=== PATIENT | male | born 1965 | race Caucasian/White ===

== ENCOUNTER 2022-12-20 22:16 | Inpatient (IN) | payer OTHER, SELFPAY ==
--- NOTE | ~2022-12-20 | XR_ITS ---
EXAMINATION: XR CHEST CLINICAL INFORMATION: Chest COMPARISON: None available. TECHNIQUE: Frontal view of the chest was obtained. FINDINGS: Normal symmetric lung volumes. No parenchymal consolidation. No pleural effusion. No pneumothorax. Cardiomediastinal silhouette and pulmonary vascularity are within normal limits. No acute osseous abnormalities. XR/XR chest 1V IMPRESSION: No acute pulmonary disease.
--- NOTE | ~2022-12-20 | CT_ITS ---
EXAMINATION: CT HEAD WITHOUT CONTRAST (STROKE PROTOCOL) CLINICAL INFORMATION: Stroke protocol. Right facial injury within the right arm numbness COMPARISON: None available. TECHNIQUE: Contiguous axial imaging was performed from the skull base to vertex without intravenous administration of contrast. This CT examination was performed using dose optimization techniques as appropriate, variously including the following: *Automated exposure control *Adjustment of mA and/or kV according to patient size (this includes techniques or standardized protocols for targeted exams where dose is matched to indication/reason for exam; i.e. extremities or head) *Use of iterative reconstruction technique DLP: 783 mGy-cm FINDINGS: There is no evidence of acute intracranial hemorrhage or territorial infarction. No abnormal mass effect or midline shift is seen. Bates to white matter differentiation is well preserved. No extra-axial fluid collections are identified. No hydrocephalus. No significant volume loss. There is no abnormal attenuation within the brain parenchyma. No acute osseous or soft tissue abnormality. The mastoid air cells and visualized portions of the paranasal sinuses are well aerated. CT/CT head for stroke IMPRESSION: No acute intracranial pathology. This critical result was discussed with Dr Harden at 12/20/2022 10:29 PM and it was ascertained that the content and urgency of the report was understood at the time of direct communication.
--- NOTE | ~2022-12-20 | MR_ITS ---
EXAMINATION: MR BRAIN WITHOUT CONTRAST CLINICAL INFORMATION: Stroke. Post PA. COMPARISON: Head CT December 20, 2022. TECHNIQUE: Multiplanar, multisequence imaging of the brain was performed without intravenous contrast. FINDINGS: There is no acute infarction, hemorrhage, mass, or extra-axial fluid collection. The ventricles are normal in size without hydrocephalus. Mild scattered nonspecific foci of T2/FLAIR hyperintensity are seen within the cerebral white matter. The major arterial flow voids are preserved at the skull base. The extracranial structures are unremarkable. MR/MR head/brain wo con IMPRESSION: No acute infarct, mass lesion, intracranial hemorrhage, or evidence of hydrocephalus.
--- NOTE | ~2022-12-20 | CT_ITS ---
EXAMINATION: CT ANGIOGRAM HEAD AND NECK CLINICAL INFORMATION: Right arm weakness. Dysarthria. Right facial droop.. Assess for major vessel occlusion. COMPARISON: CT head performed earlier same date TECHNIQUE: Test bolus sequences followed by intravenous administration 100 mL of Omnipaque 300 intravenous contrast. Helical imaging was performed in the axial plane from the mediastinum to the skull vertex. Delayed postcontrast imaging of the head was also performed. The data was processed at the chief cardiopulmonary technologist's workstation for generation of MIP sequences. Three-dimensional volume rendered reformatted images were also generated at an offline 3-D workstation. This CT examination was performed using dose optimization techniques as appropriate, variously including the following: *Automated exposure control *Adjustment of mA and/or kV according to patient size (this includes techniques or standardized protocols for targeted exams where dose is matched to indication/reason for exam; i.e. extremities or head) *Use of iterative reconstruction technique The degree of stenosis determined by NASCET criteria. DLP: 1685 mGy-cm FINDINGS: SOFT TISSUES AND LUNG APICES: No overt abnormality is appreciated. CTA NECK: The aortic arch has a classic configuration and the major arch vessel origins are non-stenotic. The vertebral arteries are co-dominant and both vertebral origins are widely patent. 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 There is a 2.6 mm chronic saccular aneurysm/pseudoaneurysm emanating from the anterior aspect of the V3 segment, also just distal to the C2 foramen transversarium (see moise images). There is questionable diffuse irregularity of the bilateral V2 and V3, raising the possibility of fibromuscular dysplasia. Both common carotid arteries are normal in course and caliber. Both internal carotid arteries are widely patent.. CTA HEAD: There is normal opacification of the major intracranial vessels. No acute proximal large vessel occlusion, focal flow-limiting stenosis, or saccular intracranial aneurysm is identified. No abnormal parenchymal enhancement or regional oligemia is visualized. HEAD (delayed): No intracranial mass, intercerebral edema, hemorrhage, or midline shift is evident. The ventricles and sulci are stable in size and configuration. No extra-axial collections are appreciated. No pathologic intracranial enhancement. Dural sinuses are patent. The paranasal sinuses are well-aerated and clear. CT/CT angio head neck stroke IMPRESSION: * No large vessel occlusion or hemodynamically significant stenosis within the intracranial or extracranial arterial vasculature. 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 * Chronic saccular aneurysm/pseudoaneurysm measuring 2.6 mm emanating from the anterior aspect of the right V3 segment, just distal to the C2 foramen transversarium. * Question diffuse irregularity of the bilateral V2 and V3 segments, raising the possibility of fibromuscular dysplasia. This critical result was discussed with Dr Harden at 12/20/2022 11:01 PM and it was ascertained that the content and urgency of the report was understood at the time of direct communication.
--- NOTE | 2022-12-20 22:22 | ECG_ITS ---
Test Reason : stroke Blood Pressure : / mmHG Vent. Rate : 100 BPM Atrial Rate : 100 BPM P-R Int : 166 ms QRS Dur : 078 ms QT Int : 352 ms P-R-T Axes : 038 025 025 degrees QTc Int : 454 ms Normal sinus rhythm Normal ECG No previous ECGs available Referred By: Thanh Harden Electronically Signed By:Charlie Lion
[2022-12-20 22:26] LABS: Prothrombin Time Whole Bld POC 12.9 sec (11.1-13.5); ~PT, ~INR - Anti Coag Clinic 1.1 (0.9-1.1)
[2022-12-20 22:29] VITALS: BP 169/105; PULSE 114; O2SAT 99
[2022-12-20] MEDS: iohexoL 350 MG/ML 100 ML INFUS..BTL IV (22:33)
[2022-12-20 22:42] VITALS: BMI 26.4
--- NOTE | 2022-12-20 22:49 | ED.NEUROSD ---
HPI - Neuro Symptoms/Deficit General Chief Complaint: Stroke Stated Complaint: stroke alert Time Seen by Provider: 12/20/22 22:19 Source: patient and EMS Mode of arrival: EMS Limitations: no limitations History of Present Illness HPI Narrative: 57-year-old male who presents emergency department for evaluation of stroke-like symptoms which began while he was at work at 21:00 hours. 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 He states that the went in to the store room to get supplies at around 21:00 hours when he ?felt weird . States that he developed a tingling this in the right side of his body. He then the weakness in his right arm and right leg. He states that while he was at work he developed numbness in the right side of his face and then a right facial droop. He then developed right arm and right leg weakness. He went to a colleague who took his blood pressure and when he pulled down his mask it was noted that he had a right facial droop. Patient states that his blood pressure was high, his colleague called an ambulance, the patient then transported to the emergency department. The patient was evaluated by me on the head school custodian stretcher. The patient had dysarthric speech, right facial droop, right upper and right lower extremity weakness compared to the left. He was sent directly to CT scan or CT scan of the brain without contrast, CT angiogram head and neck. CT scan of the brain without contrast was unremarkable and I did discuss this with the covering radiologist I did discuss tPA with the patient and he did give me informed verbal consent. I also discussed tPA with our covering neurologist, Dr. Garcia and he agreed that the patient was a tPA candidate. The patient did tell me that his platelet count is normal but when he takes NSAID his platelet count drops. I did discuss this with Dr. Garcia and we both felt that this was not a contraindication to tPA at this time. I did discuss the CT scan of the head and neck with the radiology and there was no acute retrievable blood clot, there were incidental finding which I do not think were contraindicated indication to giving tPA. Related Data Allergies Allergy/AdvReac Type Severity Reaction Status Date / Time codeine Allergy Unknown Verified 12/20/22 22:33 NSAIDS (Non-Steroidal Allergy Unknown Verified 12/20/22 22:33 Anti-Inflamma Penicillins Allergy Unknown Verified 12/20/22 22:33 Tetanus Vaccines and Toxoid Allergy Unknown Verified 12/20/22 22:33 Review of Systems Review of Systems: Yes all other systems are reviewed and are negative Neurologic: Reports Abnormal speech present (Dysarthric but comprehensible) [facility] Past Medical History [facility] Narrative: Past medical history: ADHD, low platelet count after taking NSAIDs. 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 Social History Social History Alcohol intake: never Smoked in Last 30 Days: No Use of substances other than those prescribed or required for medical reasons: No Physical Exam Vital Signs: Vital Signs: Last Vital Signs Temp 97.7 F 12/20/22 23:02 Pulse 98 12/20/22 23:18 Resp 14 12/20/22 23:18 BP 157/99 H 12/20/22 23:18 Pulse Ox 100 12/20/22 23:18 O2 Del Method 12/20/22 23:18 BMI result Body Mass Index 26.4 Const: Other: Awake, alert, male patient, pleasant, cooperative, dysarthric speech but comprehensible, obvious right facial droop, right upper extremity weakness and right lower extremity weakness compared to low Orientation/consciousness: oriented to person and oriented to place HEENT: Head: Yes normal to inspection, Yes normocephalic and Yes atraumatic Ears: external ears normal General nose exam: Normal external nose present Face and sinus: Yes normal facial exam Mouth: Normal oral and palatal mucosa present Throat: Yes posterior oropharynx normal Eyes: General: appearance normal, both eyes and all related structures Pupils: Equal, round and reactive pupils present Neck: Neck: Yes normal visual inspection, Yes no lymphadenopathy, Yes trachea midline and Yes supple Chest: Chest palpation & inspection: normal inspection of the chest and normal palpation of entire chest wall Resp: Effort & Inspection: normal respiratory effort and able to speak in complete sentences Auscultation: clear to auscultation bilaterally Cardio: Rate: regular rate Rhythm: regular rhythm Heart sounds: S1 normal heart sound present, S2 normal heart sound present and no murmurs GI: Inspection: Yes normal to inspection Palpation (GI): Soft to palpation, nontender and no guarding Auscultation: normal bowel sounds : General: Yes no CVA tenderness Back/Spine/Pelvis: Back: no CVA tenderness Skin: General skin exam: no rashes or lesions noted Neuro: General: oriented to person and oriented to place Cranial nerves: Yes Equal, round and reactive pupils present and Yes Other cranial nerve findings present (Right facial droop) Cognition (Neuro): normal cognition Speech: Abnormal speech present (Dysarthric but comprehensible) Motor exam (neuro): Other motor observations present (Right upper, right lower extremity weakness) Extrem: General: Yes normal to inspection Psych: Appearance: grossly normal Speech and movement: Normal speech and movement present Affect: normal affect Attitude: cooperative Thought process: Normal thought process present Thought content: Normal thought content present Medications Administered Discontinued Medications Generic Name Dose Route Start Last Admin Trade Name Freq PRN Reason Stop Dose Admin Alteplase, Recombinant 75.2 mg 12/20/22 22:58 12/20/22 22:57 Alteplase 100 Mg Vial IV 12/20/22 22:59 75.2 mg ONCE ONE Administration Iohexol 100 ml 12/20/22 22:33 12/20/22 22:33 Iohexol 350 Mg/Ml 100 Ml Infus..Btl IV 12/20/22 22:34 70 ml ONCE ONE Administration Medical Decision Making Medical Decision Making [facility] Narrative: 57 y/o male with no significant past medical history presents emergency department for evaluation of sudden onset of right facial droop, right upper and lower extremity weakness, dysarthric speech which began at 21:00 hours while he was at work. Patient examination on presentation is consistent with acute stroke. CT scan of the brain was discussed with the radiologist there are no acute findings. I did discuss the patient's presentation with the covering neurologist, Dr. Garcia and we both agreed that the patient was a good tPA candidate. The patient did give me informed verbal consent and he was given the tPA bolus and started on tPA drip. CT angiogram head and neck did not reveal any retrieval clot and no significant acute findings. I did discuss the patient's presentation with the covering assistant facility manager, Dr. Flores and the patient was except into the intensive care unit for further management. Differential Diagnosis Differential diagnosis includes was not limited to stroke, TIA, cerebral bleed, complex migraine Consult Healthcare Provider Management of the patient was discussed with: Director Financial Analysis (Neurologist, Dr. Garcia, intensive Dr Flores, radiology Dr. Kessler) Lab Data [facility] Lab Attestation statement: I reviewed the patient's lab results. 12/20/22 22:51 12/20/22 22:51 Labs: Lab Results 12/20/22 12/20/22 12/20/22 Range/Units 22:22 22:51 22:51 WBC 6.7 (4.8-10.8) X10*3/uL RBC 4.73 (4.60-5.80) X10*6/uL Hgb 13.9 L (14.0-18.0) g/dl Hct 42.3 (42.0-52.0) % MCV 89.4 (80.0-98.0) fL MCH 29.4 (27.0-33.0) pg MCHC 32.9 (31.0-36.0) g/dl RDW 12.7 (11.0-16.0) % Plt Count 131 L (160-400) X10*3/uL MPV 11.1 (9.4-12.4) fL Immature Gran % (Auto) 0.4 (0.0-0.4) % Neut % (Auto) 59.1 (45-73) % Lymph % (Auto) 29.3 (20-40) % Summit % (Auto) 9.7 (2-11) % Eos % (Auto) 1.2 (0-4) % Baso % (Auto) 0.3 (0-2) % Lymph # (Auto) 2.0 (1.2-4.9) X10*3/uL Summit # (Auto) 0.7 (0.1-1.2) X10*3/uL Eos # (Auto) 0.1 (0.0-0.4) X10*3/uL Baso # (Auto) 0.0 (0.0-0.2) X10*3/uL Abs Immat Gran (auto) 0.03 (0.00-0.03) X10*3/uL Absolute Neuts (auto) 4.0 (2.0-8.3) x10*3/uL Absolute Nucleated RBC 0.000 (0.0-0.012) X10*3/uL Nucleated RBC % (auto) 0.0 (0.0-0.2) /100WBC PT (10.0-13.1) SEC Whole Blood PT 12.9 (11.1-13.5) sec INR (0.9-1.1) Whole Blood INR 1.1 (0.9-1.1) APTT (26.0-36.4) SEC Sodium 138 (135-145) mmol/L Potassium 4.2 (3.3-5.1) mmol/L Chloride 105 (96-108) mmol/L Carbon Dioxide 25 (22-29) mmol/L Anion Gap 12 (12-20) BUN 15 (9-16) mg/dL Creatinine 0.85 (0.5-1.4) mg/dL Estim Creat Clear Calc 100.1 Estimated GFR > 60 Random Glucose 93 (60-115) mg/dL Calcium 8.8 (8.4-10.2) mg/dL Total Bilirubin 0.9 (0.0-1.0) mg/dL Direct Bilirubin 0.2 (0.0-0.5) mg/dL AST 20 (5-37) U/L ALT 23 (0-40) U/L Alkaline Phosphatase 73 (39-117) U/L Total Creatine Kinase 49 (38-174) U/L Total Protein 5.9 L (6.5-8.0) g/dL Albumin 4.2 (3.5-5.0) g/dL // Range/Units 22:51 WBC (4.8-10.8) X10*3/uL RBC (4.60-5.80) X10*6/uL Hgb (14.0-18.0) g/dl Hct (42.0-52.0) % MCV (80.0-98.0) fL MCH (27.0-33.0) pg MCHC (31.0-36.0) g/dl RDW (11.0-16.0) % Plt Count (160-400) X10*3/uL MPV (9.4-12.4) fL Immature Gran % (Auto) (0.0-0.4) % Neut % (Auto) (45-73) % Lymph % (Auto) (20-40) % Summit % (Auto) (2-11) % Eos % (Auto) (0-4) % Baso % (Auto) (0-2) % Lymph # (Auto) (1.2-4.9) X10*3/uL Summit # (Auto) (0.1-1.2) X10*3/uL Eos # (Auto) (0.0-0.4) X10*3/uL Baso # (Auto) (0.0-0.2) X10*3/uL Abs Immat Gran (auto) (0.00-0.03) X10*3/uL Absolute Neuts (auto) (2.0-8.3) x10*3/uL Absolute Nucleated RBC (0.0-0.012) X10*3/uL Nucleated RBC % (auto) (0.0-0.2) /100WBC PT 12.7 (10.0-13.1) SEC Whole Blood PT (11.1-13.5) sec INR 1.1 (0.9-1.1) Whole Blood INR (0.9-1.1) APTT 33.7 (26.0-36.4) SEC Sodium (135-145) mmol/L Potassium (3.3-5.1) mmol/L Chloride (96-108) mmol/L Carbon Dioxide (22-29) mmol/L Anion Gap (12-20) BUN (9-16) mg/dL Creatinine (0.5-1.4) mg/dL Estim Creat Clear Calc Estimated GFR Random Glucose (60-115) mg/dL Calcium (8.4-10.2) mg/dL Total Bilirubin (0.0-1.0) mg/dL Direct Bilirubin (0.0-0.5) mg/dL AST (5-37) U/L ALT (0-40) U/L Alkaline Phosphatase (39-117) U/L Total Creatine Kinase (38-174) U/L Total Protein (6.5-8.0) g/dL Albumin (3.5-5.0) g/dL Radiology Impression Discussion of test interpretation with radiology: I discussed test interpretation with the radiologist Radiologist Impression: CT head for stroke IMPRESSION: No acute intracranial pathology. This critical result was discussed with Dr Harden at 12/20/2022 10:29 PM and it was ascertained that the content and urgency of the report was understood at the time of direct communication. Dictated By:Giovany Kessler MDSigned By:<Electronically signed by Giovany Kessler MD in [place]>12/20/[address] angio head neck stroke IMPRESSION: * No large vessel occlusion or hemodynamically significant stenosis within the intracranial or extracranial arterial vasculature. 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 * Chronic saccular aneurysm/pseudoaneurysm measuring 2.6 mm emanating from the anterior aspect of the right V3 segment, just distal to the C2 foramen transversarium. * Question diffuse irregularity of the bilateral V2 and V3 segments, raising the possibility of fibromuscular dysplasia. This critical result was discussed with Dr Harden at 12/20/2022 11:01 PM and it was ascertained that the content and urgency of the report was understood at the time of direct communication. Dictated By:Giovany Kessler MDSigned By:<Electronically signed by Giovany Kessler MD in [place]>12/20/22 2303 Independent Historian Clinical information obtained from an independent historian. History obtained from or confirmed by: EMS NIH Stroke Scale Internal: Initial- Upon Arrival Level of Consciousness: Alert Level of Consciousness Questions: Answers both questions correctly Level of Consciousness Commands: Performs both tasks correctly Best Gaze: Normal Visual: No visual loss Facial Palsy: Partial paralysis (Right) Motor Arm (Right): Drift Motor Arm (Left): No drift Motor Leg (Right): No drift Motor Leg (Left): No drift Limb Ataxia: Absent Sensory: Mild to moderate sensory loss Best Language: No aphasia Dysarthia: Mild to moderate dysarthria Extinction and Inattention: No abnormality Score: 5 Critical Care Time Critical Care Time Critical Care Time: Yes Total Critical Care Time: 80 Attestation: Critical Care: The patient was critically ill with a high probability of imminent or life threatening deterioration. I spent greater than 30 minutes of discontinuous time evaluating the patient,delivering critical care at the bedside, discussing and evaluating pertinent data with consultants. Critical care time does not include time spent performing separately billable procedures or teaching. Total time spent performing critical care was 80 minutes. Discharge Plan Discharge Clinical Impression: Cerebrovascular accident Qualifiers: CVA mechanism: unspecified Qualified Code(s): I63.9 - Cerebral infarction, unspecified Patient Disposition: Admitted As Inpatient
[2022-12-20 22:55] LABS: MANUAL DIFF FLAG NO
[2022-12-20 22:58] LABS: Stroke Lab Use COMPLETE
[2022-12-20 22:59] LABS: Basophils Percent Auto 0.3 % (0-2); Eosinophils Absolute Auto 0.1 X10*3/uL (0.0-0.4); Eosinophils Percent Auto 1.2 % (0-4); Hematocrit 42.3 % (42.0-52.0); Hemoglobin 13.9 g/dl (14.0-18.0); Imm Gran Abs Auto 0.03 X10*3/uL (0.00-0.03); Imm Gran Pct Auto 0.4 % (0.0-0.4); Lymphocytes Percent Auto 29.3 % (20-40); Mean Corpuscular HGB Conc 32.9 g/dl (31.0-36.0); Mean Corpuscular Hemoglobin 29.4 pg (27.0-33.0); Mean Corpuscular Volume 89.4 fL (80.0-98.0); Mean Platelet Volume 11.1 fL (9.4-12.4); Monocytes Absolute Auto 0.7 X10*3/uL (0.1-1.2); Monocytes Percent Auto 9.7 % (2-11); Neutrophils Percent Auto 59.1 % (45-73); Platelet Count 131 X10*3/uL (160-400); Red Blood Count 4.73 X10*6/uL (4.60-5.80); Red Cell Distribution Width 12.7 % (11.0-16.0); White Blood Count 6.7 X10*3/uL (4.8-10.8)
[2022-12-20 23:01] VITALS: BP 152/87
[2022-12-20 23:01] LABS: INTERNATIONAL NORM RATIO 1.1 (0.9-1.1); Prothrombin Time 12.7 SEC (10.0-13.1)
[2022-12-20 23:02] VITALS: BP 155/97; PULSE 94; RESP 19; TEMP 36.5; O2SAT 99
[2022-12-20 23:03] LABS: Partial Thromboplastin Time 33.7 SEC (26.0-36.4)
[2022-12-20 23:14] LABS: Alanine Aminotransferase 23 U/L (0-40); Albumin Level 4.2 g/dL (3.5-5.0); Alkaline Phosphatase 73 U/L (39-117); Anion Gap 12 (12-20); Aspartate Amino Transferase 20 U/L (5-37); Bilirubin Direct 0.2 mg/dL (0.0-0.5); Bilirubin Total 0.9 mg/dL (0.0-1.0); Blood Urea Nitrogen 15 mg/dL (9-16); Calcium 8.8 mg/dL (8.4-10.2); Carbon Dioxide 25 mmol/L (22-29); Chloride 105 mmol/L (96-108); Creatinine Clr Calc Pharmacy 100.1; Estimated Glomerular Filt Rate > 60; Glucose Random 93 mg/dL (60-115); Potassium 4.2 mmol/L (3.3-5.1); Sodium 138 mmol/L (135-145); Total Protein 5.9 g/dL (6.5-8.0)
[2022-12-20 23:18] VITALS: BP 157/99; PULSE 98; RESP 14; O2SAT 100
[2022-12-20 23:24] LABS: Troponin-I High Sensitivity < 3.5 ng/L (<3.5-35.0)
--- NOTE | 2022-12-20 23:29 | PM.CCHP ---
History of Present Illness Date of Service: 12/20/22 Attending physician on admission: Rigoberto Flores Chief Complaint: Right-sided weakness The patient is a 57-year-old male with? past medical history of ADHD, who presented to the emergency room as a stroke alert.? 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 He states around 21:00 hours when he? ?felt weird , developed tingling in the right side of his body.? He then developed weakness in his right arm and right leg, numbness in the right side of his face and then a right facial droop. Patient stated that his blood pressure was high, his colleague called an ambulance, the patient then transported to the emergency department. Per EMS his BP was 180/120.? In the emergency room, BP 152/82,? other vital signs were stable. The patient with dysarthric speech, right facial droop, right upper and right lower extremity weakness compared to the left. CT scan of the brain without contrast was unremarkable.? Per ED physician consulted Neurology, Dr. Garcia, who agrees the patient is a tPA candidate. ? TPA was administered at 2300.? Review of Systems Review of Systems: Yes all other systems are reviewed and are negative PMFSH Social History Social History Alcohol intake: never Patient Tobacco Use Status: Never used Tobacco Smoked in Last 30 Days: No Use of substances other than those prescribed or required for medical reasons: No Advance Directives: Yes Advance Directives on File: Yes Advance Directives Date on File: 12/20/22 Nutrition Risks: No Nutritional Risk Meds Allergies Allergy/AdvReac Type Severity Reaction Status Date / Time codeine Allergy Unknown Verified 12/20/22 22:33 NSAIDS (Non-Steroidal Allergy Unknown Verified 12/20/22 22:33 Anti-Inflamma Penicillins Allergy Unknown Verified 12/20/22 22:33 Tetanus Vaccines and Toxoid Allergy Unknown Verified 12/20/22 22:33 Active Medications: Current Medications Labetalol HCl (Labetalol Hcl 100 Mg/20 Ml Vial) 10 mg IVPUSH Q29M PRN; Protocol PRN Reason: Systolic greater than 180 Home Medications Medication Instructions Recorded Confirmed Last Taken Type atomoxetine 80 mg capsule 1 cap PO QAM 12/21/22 12/21/22 Unknown History Physical Exam Vital Signs: Vital Signs: Last Vital Signs Temp 97.7 F 12/20/22 23:02 Pulse 98 12/20/22 23:18 Resp 14 12/20/22 23:18 BP 157/99 H 12/20/22 23:18 Pulse Ox 100 12/20/22 23:18 O2 Del Method 12/20/22 23:18 BMI result Body Mass Index 26.4 Constitutional: No acute distress, alert and oriented x 3 HEENT: No hearing loss, sneezing, congestion, runny nose or sore throat. No vision change or blurred vision Respiratory:? Lung CTA bilaterally, no wheezes, rhonchi, or rales Cardiac: RRR, +S1/S2, no murmurs/rubs, pulses palpable and equal in all extremities Gastrointestinal: +BS, non-tender to palpation, non-distended Neurologic:? Neurological exam,? The patient is alert, attentive, and oriented x 4. Speech is clear and fluent with good repetition, comprehension, and naming. face symmetrical. ? Motor: Strength 5/5 bilaterally in all extremiies. Muscle bulk and tone are normal. Sensory: Sensation intact bilaterally in lower extremities Coordination:Rapid alternating movements and fine finger movements are intact. There are no abnormal or extraneous movements.? Musculoskeletal: No gross deformities, back non-tender to palpation Skin: No rash/lesions,ulcers Psych: Mood appropriate to situation Results Labs 12/20/22 22:51 12/20/22 22:51 Labs: Laboratory Results - last 24 hr 12/20/22 12/20/22 12/20/22 22:22 22:51 22:51 MCV 89.4 MCH 29.4 MCHC 32.9 RDW 12.7 Plt Count 131 L MPV 11.1 Immature Gran % (Auto) 0.4 Neut % (Auto) 59.1 Lymph % (Auto) 29.3 [place]son % (Auto) 9.7 Eos % (Auto) 1.2 Baso % (Auto) 0.3 Lymph # (Auto) 2.0 [place]son # (Auto) 0.7 Eos # (Auto) 0.1 Baso # (Auto) 0.0 Abs Immat Gran (auto) 0.03 Absolute Neuts (auto) 4.0 Absolute Nucleated RBC 0.000 Nucleated RBC % (auto) 0.0 PT Whole Blood PT 12.9 INR Whole Blood INR 1.1 APTT Anion Gap 12 Estim Creat Clear Calc 100.1 Estimated GFR > 60 Random Glucose 93 Calcium 8.8 Total Bilirubin 0.9 Direct Bilirubin 0.2 AST 20 ALT 23 Alkaline Phosphatase 73 Total Creatine Kinase 49 Troponin I High Sens Total Protein 5.9 L Albumin 4.2 12/20/22 12/20/22 22:51 22:51 MCV MCH MCHC RDW Plt Count MPV Immature Gran % (Auto) Neut % (Auto) Lymph % (Auto) Anson % (Auto) Eos % (Auto) Baso % (Auto) Lymph # (Auto) Anson # (Auto) Eos # (Auto) Baso # (Auto) Abs Immat Gran (auto) Absolute Neuts (auto) Absolute Nucleated RBC Nucleated RBC % (auto) PT 12.7 Whole Blood PT INR 1.1 Whole Blood INR APTT 33.7 Anion Gap Estim Creat Clear Calc Estimated GFR Random Glucose Calcium Total Bilirubin Direct Bilirubin AST ALT Alkaline Phosphatase Total Creatine Kinase Troponin I High Sens < 3.5 Total Protein Albumin Imaging Radiologist's Impressions: Impressions Head CT 12/20/22 22:26 IMPRESSION: No acute intracranial pathology. This critical result was discussed with Dr Harden at 12/20/2022 10:29 PM and it was ascertained that the content and urgency of the report was understood at the time of direct communication. Head/Neck CTA 12/20/22 22:33 IMPRESSION: * No large vessel occlusion or hemodynamically significant stenosis within the intracranial or extracranial arterial vasculature. 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 * Chronic saccular aneurysm/pseudoaneurysm measuring 2.6 mm emanating from the anterior aspect of the right V3 segment, just distal to the C2 foramen transversarium. * Question diffuse irregularity of the bilateral V2 and V3 segments, raising the possibility of fibromuscular dysplasia. This critical result was discussed with Dr Harden at 12/20/2022 11:01 PM and it was ascertained that the content and urgency of the report was understood at the time of direct communication. Assessment and Plan (1) Cerebrovascular accident: Qualifiers: CVA mechanism: unspecified Qualified Code(s): I63.9 - Cerebral infarction, unspecified Status: Acute (2) Hypertension: Status: Acute Plan Neuro:? New CVA: Right sided weakness, numbness, facial droop, and dysarthria. Ct head with no acute findings.? Patient does not have a history of? medical possible cause for CVAHead/neck CTA no vessel occlusion noted,but with incidental findings, but no contraindication for tPA. He is s/p tPA. ? Neuro assessment back to baseline,? no deficits.? ?Will continue to follow post tPA protocol.? Follow Neurology recommendations.?? ? Cardiac: ??Hypertension:? does not have a diagnosis of hypertension,?but had elevated BP readings. stable now.? Will avoid hypotension and severe hypertension? as the patient is post tPA Pulmonary: ??No acute issues Renal:?No acute issues Endo:? No acute issues.? GI: No acute issues. heme/onc: No acute issues. Misc:? no acute issues DVT: No DVT anticoagulation for 24hr post tPA Diet:? NPO until able to do evaluation Case discussed with? attending Dr. Flores? Critical care time x 30 Time Spent With Patient Time: Total time managing care of this patient today ____ minutes. Critical Care Time Critical Care Time (minutes): 30
[2022-12-20 23:43] VITALS: BP 162/106; PULSE 95; RESP 15; O2SAT 100
[2022-12-21] VITALS (29 sets, daily range): BP systolic 131–176; BP diastolic 64–116; PULSE 66–108; RESP 10–22; TEMP 35.4–36.9; O2SAT 94–100; BMI 25.5
[2022-12-21 00:14] LABS: COVID-19 Test Negative (Negative); IDNOW Serial# 08D9AD1C
--- NOTE | 2022-12-21 00:33 | PC.NURSE ---
late entry - patient brought in by ambulance as a stroke alert. 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 LKW 21:00. around 21:00 hrs patient began feeling weird stating he noticed a right sided facial droop, right sided arm and leg weakness, with associated slurred speech. upon arrival patient went immediately to CT scan, ivs in place, labs sent, placed on chute builder. TPA initiated @22:57. denies headache, denies dizziness, denies loss of vision, etc. unilateral weakness, facial droop, slurred speech, disequilibrium noted on arrival to ED. patient reports all symptoms resolved after TPA administration. weakness resolved, speech resolved, and no facial droop noticed. pt on chute builder, vital signs stable, using urinal at bedside, ringing call martinez appropriately , A&Ox4, speaking clear full sentences with no issues. at bedside. will CTM
[2022-12-21] MEDS: Labetalol HCL 100 MG/20 ML VIAL IVPUSH (01:33)
[2022-12-21 05:43] LABS: MANUAL DIFF FLAG NO
[2022-12-21 05:51] LABS: Basophils Percent Auto 0.2 % (0-2); Eosinophils Absolute Auto 0.1 X10*3/uL (0.0-0.4); Eosinophils Percent Auto 0.9 % (0-4); Hematocrit 43.6 % (42.0-52.0); Hemoglobin 14.3 g/dl (14.0-18.0); Imm Gran Abs Auto 0.03 X10*3/uL (0.00-0.03); Imm Gran Pct Auto 0.4 % (0.0-0.4); Lymphocytes Absolute Auto 2.3 X10*3/uL (1.2-4.9); Lymphocytes Percent Auto 26.8 % (20-40); Mean Corpuscular HGB Conc 32.8 g/dl (31.0-36.0); Mean Corpuscular Volume 91.6 fL (80.0-98.0); Mean Platelet Volume 12.1 fL (9.4-12.4); Monocytes Absolute Auto 0.7 X10*3/uL (0.1-1.2); Monocytes Percent Auto 8.7 % (2-11); Neutrophils Absolute Auto 5.4 x10*3/uL (2.0-8.3); Platelet Count 142 X10*3/uL (160-400); Red Blood Count 4.76 X10*6/uL (4.60-5.80); Red Cell Distribution Width 12.9 % (11.0-16.0); White Blood Count 8.5 X10*3/uL (4.8-10.8)
[2022-12-21 06:07] LABS: Anion Gap 16 (12-20); Blood Urea Nitrogen 13 mg/dL (9-16); Calcium 8.9 mg/dL (8.4-10.2); Carbon Dioxide 19 mmol/L (22-29); Chloride 110 mmol/L (96-108); Cholesterol 200 mg/dL; Creatinine Clr Calc Pharmacy 107.8; Estimated Glomerular Filt Rate > 60; Glucose Random 88 mg/dL (60-115); HDL Cholesterol 40 mg/dL; LDL Cholesterol Calculated 141 mg/dl; Potassium 3.7 mmol/L (3.3-5.1); Sodium 141 mmol/L (135-145); Triglycerides 97 mg/dL
--- NOTE | 2022-12-21 07:00 | CA_ITS ---
Transthoracic Echocardiogram Patient (Last, First, Middle): Stephan Rawls D Gender: Male Date of : 1965 Age: 57 Procedure Date: 12/21/2022 Procedure Type: Transthoracic Echocardiogram Location: OP Height: 177.8 cm Weight: 77.11 kg BSA: 1.95 m2 Heart Rate: bpm BP: 131 / 78 mmHg Porcelain Turner: STEPHIE Referring MD: Angelic Boswell NP Symptoms: stroke, post tPA Study Quality: Fair ECG Rhythm: Sinus Conclusions: - Normal left ventricular size and systolic function. There is mildly increased left ventricular wall thickness. The visually estimated ejection fraction is between 55-60%. - Normal right ventricular cavity size and systolic function. - There is no evidence of interatrial shunt by agitated saline. Findings Left Ventricle Normal left ventricular size and systolic function. There is mildly increased left ventricular wall thickness. The visually estimated ejection fraction is between 55-60%. There is no evidence of regional wall motion abnormalities. Diastolic function is normal for age. Right Ventricle Normal right ventricular cavity size and systolic function. Atria Both atria are normal in size. There is no evidence of interatrial shunt by agitated saline. Aortic Valve Normal aortic valve structure and function. There is no aortic valve stenosis. There is no aortic valve regurgitation. Mitral Valve Normal mitral valve structure and function. There is trace mitral valve regurgitation. There is no mitral valve stenosis. Pulmonic Valve The pulmonic valve is likely normal. Tricuspid Valve Normal tricuspid valve structure and function. There is trace tricuspid valve regurgitation. Normal right atrial pressure. There is no evidence of pulmonary hypertension. Great Vessels All visible segments of the aorta are normal in size. The visualized portions of the pulmonary artery and branches are normal. Venous The inferior vena cava is normal in size and collapses greater than 50% with inspiration. Pericardium/Pleural There is no evidence of pericardial effusion. Prior Study Comparison No prior study available for comparison. Measurements 2D Linear Measurements IVSd: 1.21 0.6-0.9/0.6-1.0 cm LVIDd: 3.98 3.9-5.3/4.2-5.9 cm LVIDd Index: 2.04 2.4-3.2/2.2-3.1 cm/m2 LVIDs: 2.47 2.0-3.6 cm LVPWd: 1.26 0.7-1.1 cm Ao Root: 3.00 2.1-3.5 cm LA Diam: 3.60 2.7-3.8/3.0-4.0 cm LAIDs Index: 1.85 1.5-2.3 cm/m2 LV Mass: 213.50 67-162/88-224 g LV Mass Index: 109.49 43-95/49-115 g/m2 LVOT Diam: 2.10 3.0+(-)1.3 cm Mitral Valve MV Pk E: 0.49 MV PK A: 0.77 MV Decel Time: 131.00 E/A: 0.60 E'Lateral: 8.16 E'Medial: 6.42 E/E' Med: 7.70 E/E' Lat: 6.00 PHT: 38.00 MVA PHT: 5.79 Decel [place]: 3.77 Aortic Valve AoV Pk Kevin: 1.33 AoV Mn Kevin: 0.91 AoV VTI: 0.22 AoV Pk Grad: 7.00 Aov Mn Grad: 4.00 ASHLEY Cont.VTI: 2.95 LVOT LVOT Pk Kevin: 0.97 LVOT Mn Kevin: 0.64 LVOT VTI: 0.19 LVOT Pk Grad: 4.00 LVOT Mn Grad: 2.00 LVOT Diam: 2.10 LVOT Area: 3.46 Diastolic Function MV Pk E: 0.49 MV Pk A: 0.77 E/A: 0.60 E'Medial: 6.42 E/E' Med: 7.70 E' Laterial: 8.16 E/E' Lat: 6.00 Right Ventricle TAPSE (mm): 24.00 TVS' Kevin: 13.00 Tricuspid Valve TR Pk Kevin: 2.09 TR Pk Grad: 17.00 RA Press: 3.00 RVSP: 20.00 Great Vessels Aorta Ao Root-2D: 3.00 2.0-3.7 cm Ao Asc: 3.00 2.1-3.4 cm Ao Arch: 3.00 Pulmonary Valve PV Pk Kevin: 1.14 Peak PV Grad: 5.00 Updated in Other Vendor System with Status of Final Charlie Lion MD electronically signed on 12/23/2022 8:52:02 PM with status of Final
[2022-12-21 07:19] LABS: Glucose, Whole Blood 95 mg/dL (60-115)
--- NOTE | 2022-12-21 07:21 | PHA.MEDREC ---
Pharmacy Consult ? Medication Reconciliation Pharmacy has completed the medication reconciliation.
[2022-12-21] MEDS: 0.9 % Sodium Chloride Flush 3 ML SYRINGE IVFLUSH ×3 (08:33→23:56)
[2022-12-21 08:52] LABS: Glucose, Whole Blood 88 mg/dL (60-115)
--- NOTE | 2022-12-21 08:58 | MHC.CM.PN ---
This investment underwriter meet with patient. Patient [place] [facility]. 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 No services prior to hospitalization, verified PCP, abhilash'coral for COVID. Reports providing copy of HCP on arrival. to transport @ d/c. At time of this note patient is awaiting evals from PT/OT/Speech. Patient feels he is at based line. CM will continue to monitor for any changes in d/c needs- at time of this note d/c plan is home no services. Plan can be altered based on pending evals.
--- NOTE | 2022-12-21 10:49 | P.PNCC_ITS ---
Subjective Subjective Date of Service: 12/21/22 Interval History: 57-year-old gentleman with no significant past medical history admitted on 12/20/2022 with stroke alert with weakness in the right arm and right like. Initial CT chest unremarkable. CTA chest with vertebral aneurysm versus fibromuscular dysplasia. TPA was administered with resolution of symptoms. Patient was monitored in the intensive care unit overnight. No events overnight. Passed swallow evaluation. Critical Care Time (minutes): 0 Physical Exam Vital Signs: Vital Signs: Last Vital Signs Temp 98.5 F 12/21/22 08:00 Pulse 82 12/21/22 09:00 Resp 12 12/21/22 09:00 BP 158/116 H 12/21/22 09:00 Pulse Ox 98 12/21/22 09:00 O2 Del Method 12/21/22 09:00 BMI result Body Mass Index 25.5 Const: General: no acute distress, alert and awake Eyes: Sclerae: sclerae normal EOM: EOMs intact bilaterally Neck: Neck: Yes no lymphadenopathy, Yes trachea midline and Yes supple Resp: Effort & Inspection: normal respiratory effort and no respiratory distr ess Auscultation: clear to auscultation bilaterally Cardio: Rate: regular rate Rhythm: regular rhythm Heart sounds: no gallops, no murmurs and no rubs GI: Palpation (GI): Soft to palpation and Other GI palpation findings present ( Nontender) Auscultation: normal bowel sounds Neuro: General: CN's II-XI intact bilaterally and other ( Symmetrical bilateral strength/sensation) Extrem: General: Yes no pedal edema, No clubbing and No cyanosis Objective Data Labs 12/21/22 05:11 12/21/22 05:11 Labs: Laboratory Results - last 24 hr 12/20/22 12/20/22 12/20/22 22:22 22:22 22:51 WBC RBC Hgb Hct MCV MCH MCHC RDW Plt Count MPV Immature Gran % (Auto) Neut % (Auto) Lymph % (Auto) [place] % (Auto) Eos % (Auto) Baso % (Auto) Lymph # (Auto) [place] # (Auto) Eos # (Auto) Baso # (Auto) Abs Immat Gran (auto) Absolute Neuts (auto) Absolute Nucleated RBC Nucleated RBC % (auto) PT Whole Blood PT 12.9 INR Whole Blood INR 1.1 APTT Sodium 138 Potassium 4.2 Chloride 105 Carbon Dioxide 25 Anion Gap 12 BUN 15 Creatinine 0.85 Estim Creat Clear Calc 100.1 Estimated GFR > 60 POC Glucose 88 Random Glucose 93 Calcium 8.8 Total Bilirubin 0.9 Direct Bilirubin 0.2 AST 20 ALT 23 Alkaline Phosphatase 73 Total Creatine Kinase 49 Troponin I High Sens Total Protein 5.9 L Albumin 4.2 Triglycerides Cholesterol LDL Cholesterol, Calc HDL Cholesterol COVID-19 ([facility]) COVID-19 Clin Com 12/20/22 12/20/22 12/20/22 22:51 22:51 22:51 WBC 6.7 RBC 4.73 Hgb 13.9 L Hct 42.3 MCV 89.4 MCH 29.4 MCHC 32.9 RDW 12.7 Plt Count 131 L MPV 11.1 Immature Gran % (Auto) 0.4 Neut % (Auto) 59.1 Lymph % (Auto) 29.3 [place] % (Auto) 9.7 Eos % (Auto) 1.2 Baso % (Auto) 0.3 Lymph # (Auto) 2.0 [place] # (Auto) 0.7 Eos # (Auto) 0.1 Baso # (Auto) 0.0 Abs Immat Gran (auto) 0.03 Absolute Neuts (auto) 4.0 Absolute Nucleated RBC 0.000 Nucleated RBC % (auto) 0.0 PT 12.7 Whole Blood PT INR 1.1 Whole Blood INR APTT 33.7 Sodium Potassium Chloride Carbon Dioxide Anion Gap BUN Creatinine Estim Creat Clear Calc Estimated GFR POC Glucose Random Glucose Calcium Total Bilirubin Direct Bilirubin AST ALT Alkaline Phosphatase Total Creatine Kinase Troponin I High Sens < 3.5 Total Protein Albumin Triglycerides Cholesterol LDL Cholesterol, Calc HDL Cholesterol COVID-19 ([facility]) COVID-19 Clin Com 12/20/22 12/21/22 12/21/22 23:51 05:11 05:11 WBC 8.5 RBC 4.76 Hgb 14.3 Hct 43.6 MCV 91.6 MCH 30.0 MCHC 32.8 RDW 12.9 Plt Count 142 L MPV 12.1 Immature Gran % (Auto) 0.4 Neut % (Auto) 63.0 Lymph % (Auto) 26.8 [place] % (Auto) 8.7 Eos % (Auto) 0.9 Baso % (Auto) 0.2 Lymph # (Auto) 2.3 [place] # (Auto) 0.7 Eos # (Auto) 0.1 Baso # (Auto) 0.0 Abs Immat Gran (auto) 0.03 Absolute Neuts (auto) 5.4 Absolute Nucleated RBC 0.000 Nucleated RBC % (auto) 0.0 PT Whole Blood PT INR Whole Blood INR APTT Sodium 141 Potassium 3.7 Chloride 110 H Carbon Dioxide 19 L Anion Gap 16 BUN 13 Creatinine 0.79 Estim Creat Clear Calc 107.8 Estimated GFR > 60 POC Glucose Random Glucose 88 Calcium 8.9 Total Bilirubin Direct Bilirubin AST ALT Alkaline Phosphatase Total Creatine Kinase Troponin I High Sens Total Protein Albumin Triglycerides 97 Cholesterol 200 LDL Cholesterol, Calc 141 HDL Cholesterol 40 COVID-19 ([facility]) Negative COVID-19 Clin Com See Note 12/21/22 07:12 WBC RBC Hgb Hct MCV MCH MCHC RDW Plt Count MPV Immature Gran % (Auto) Neut % (Auto) Lymph % (Auto) [place] % (Auto) Eos % (Auto) Baso % (Auto) Lymph # (Auto) [place] # (Auto) Eos # (Auto) Baso # (Auto) Abs Immat Gran (auto) Absolute Neuts (auto) Absolute Nucleated RBC Nucleated RBC % (auto) PT Whole Blood PT INR Whole Blood INR APTT Sodium Potassium Chloride Carbon Dioxide Anion Gap BUN Creatinine Estim Creat Clear Calc Estimated GFR POC Glucose 95 Random Glucose Calcium Total Bilirubin Direct Bilirubin AST ALT Alkaline Phosphatase Total Creatine Kinase Troponin I High Sens Total Protein Albumin Triglycerides Cholesterol LDL Cholesterol, Calc HDL Cholesterol COVID-19 ([facility]) COVID-19 Clin Com Progress Note: A&P Assessment and plan (1) Cerebrovascular accident: Status: Acute Plan Assessment: 57-year-old gentleman admitted with CVA With right-sided weakness, status post tPA with resolution of his symptoms, monitored in the int ensive care unit. Plan: Neuro: severe status post tPA. Symptoms resolved. Neurology service care appreciated. Underlying vertebral arteries sacular aneurysms would require outpatient follow-up. Cardiac: No acute issues. Pulmonary: No acute issues. Renal: No acute issues. Endo: No acute issues. GI: No acute issues. ID: No acute issues Heme/Onc: No acute issues. Psych: No acute issues. Miscellaneous: No acute issues. Prophylaxis: Pneumatic compression Diet: regular At this time patient is stable for transfer to telemetry child. Transfer discussed with Dr. Chavez. Quality Stroke Does the patient have a stroke diagnosis?: Yes Reason for No Anti-thrombotic by Day Two: N/A - Med Ordered VTE Prior VTE?: No VTE Risk Level:: Medical - moderate - high VTE Device Contraindication: N/A - Device Ordered VTE Drug Contraindication: Treatment Not Indicated
--- NOTE | 2022-12-21 11:48 | MHC.STROKE ---
Addendum entered by Tita Fitch RN 12/21/22 16:10: THE PATIENT ALSO MENTIONED THAT HE IS A JEHOVAH WITNESS AND THAT WAS THE HESITAITON IN HIM GETTING THE TPA WITHIN 30 MINUTES, HE WANTED TO BE WELL INFORMED AND INITIALLY WASN'T SURE. THIS DID CONTRIBUTE TO THE [id number] OF 41 MINUTES. Addendum entered by Tita Fitch RN 12/21/22 16:04: I ROUNDED WITH DR HOBSON AND REINFORCED THE STROKE EDUCATION. THE WAS ALSO THERE AND I STAYED AND ANSWERED ALL OF THEIR QUESTIONS AND REVIEWED THE STROKE EDUCATION BOOKLETS. I GAVE THEM A SCREENSHOT OF THE MRI AND IDENTIFIED THE T2 FLAIR MICROVASCULAR LESIONS DR HOBSON SAID WERE FROM HTN. HE WILL CONSIDER TAKING ASPIRIN BUT INITIALLY REFUSING WELL A STATIN. HE WILL NEED BP CONTROL PRIMARILY IT'S HIS DIASTOLIC BP THAT IS HIGH THAN THE SBP. HE UNDERSTANDS THE TREATMENT PLAN AND AGREES. 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 ARRIVED AT [facility]. EXAMINE BY PROVIDER, NIHSS = 5, DONE AT 2219. DIRECT TO CT AND CTA H/N ON EMS STRETCHER. NO BLEED, NO LVO. HE RELAYED TO PROVIDER THAT HE HAS A HISTORY OF LOW PLATELET COUNT. PROVIDER SPOKE WITH NEUROLOGIST DR. HOBSON AND IT WAS DETERMINED THAT PATIENT IS ELIGIBLE FOR TPA-ALTEPLASE. MEDICATION GIVEN A T 22:57, [id number] = 41 MINUTES (OVER THE 30 MINUTES BECAUSE CARE TEAM NEED TO DETERMINE ELIGIBILITY DUE TO CLARIFYING HIS HISTORY OF LOW PLATELETS). INITIAL NURSING SWALLOW SCREEN FAILED, IT WAS REPEATED IN THE AM AND HE PASSED. I MET WITH THE PATIENT THIS AM TO PROVIDE STROKE EDUCATION AND REVIEW THE PLAN OF CARE AND REVIEW THE SEQUENCE OF EVENTS. HE BECAME VERY TEARY. HE ADMITS TO ADHD AND HAD QUESTIONS REGARDING HIS MEDICATION, I ADVISED HIM TO ASK THE NEUROLOGIST. HE MENTIONED THAT HE HAD A + FAMILY HISTORY FOR STROKE AND HEART DISEASE. HE HAS BEEN HEALTHY, HE HAS RECENTLY LOST WEIGHT. I MENTIONED THAT HE WOULD BE STARTING ON AN ANTIPLATELET AND HE WASN'T SURE HE WANTED ASPIRIN BUT HE WOULD CONSIDER PLAVIX. HE ALSO WASN'T SURE HE WANTED TO TAKE A STATIN OR NOT. HIS LDL IS 141 AND I DID EXPLAIN THE BENEFITS AND THAT THERE WERE SEVERAL OPTIONS. HE IS WORRIED ABOUT MUSCLE WEAKNESS. HIS MRI IS SCHEDULE AROUND 12NOON AND I WILLMEET WITH HIM AGAIN AFTER THE TEST. I WILL CONTINUE TO FOLLOW.
--- NOTE | 2022-12-21 11:52 | MHC.SL.SWA ---
Speech Pathologist Impression: WFL Risk of Aspiration Due to: Neurological Condition (CVA) Dysphasia Diet Status: No Change Liquid Consistency and Strategies for Safe Swallow: Liquid Intake Recommendation: Thin Solid Food Consistency: Dietary Recommendations: Regular Additional Modifications to Solid Foods: Pt admitted for CVA, is s/p tPA. Pt seen for bedside swallow evaluation in the ICU this morning, which was unremarkable. Recommend continue with unmodified diet textures, regular solids with thin liquids and pills whole with liquid. Pt reported his speech is back at baseline. Discussed with RN in ICU, notified MD and RD of recommendations via [place] Message. Further ST intervention no longer warranted. Please re-refer with any changes or further concern. Oral Medication Intake: Whole with Liquid Please contact the pharmacy regarding appropriate crushable or liquid drug formulations that are available whenever modified delivery is recommended. Compensatory Strategies and Precautions to be Taken for Safe Swallow: Sitting Upright (90 deg) Small Bites and Sips Rate of Ingestion Change Supervision While Eating and Drinking for Safe Swallow: None Needed Recommendation for Speech: NA:Typical Evaluation Correspondence Specialist Clinican/Clinical Fellow: No Supervisory Statement: I have reviewed and agree with the student/clinical fellow's documentation: N/A Speech Language Pathologist: Pushpa Browne M.A., CCC-BAGGAGE HANDLER
--- NOTE | 2022-12-21 15:40 | PM.NEUROCN ---
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 He was at work when he noted head that his right hand was numb and weak. In few minutes this feeling extended to involve his whole right side including his face. Somebody size face and noted facial droop an embolus was called and he was brought to hospital. In hospital his blood pressure was high. After treating high blood pressure and with residual weakness suggestive of stroke he was treated with intravenous tPA. He said that his symptoms resolved after tPA was given to him. He did not have any headache associated with this. Review of Systems Review of Systems: No recent cold or flu-like illness or cardiac symptoms PMFSH Social History Social History Household Members: Spouse Housing: Apartment Do you presently have visiting nurse or other home services: No Alcohol intake: never Patient Tobacco Use Status: Never used Tobacco Smoked in Last 30 Days: No Use of substances other than those prescribed or required for medical reasons: No Currently Displaying Signs/Symptoms of Drug Intoxication Withdrawal: No Have you been hit, kicked, punched, or otherwise hurt by someone within the past year? If so, by whom?: No Do you feel safe in your current relationship?: Yes Is there a partner from a previous relationship who is making you feel unsafe now?: No Are you made to feel afraid or neglected: No Advance Directives: Yes Advance Directives on File: Yes Advance Directives Date on File: 12/20/22 Do you have thoughts of harming others: None Do you have a plan to hurt others: No Plan Recently lost weight without trying: No Nutrition Risks: No Nutritional Risk service: No Current occupational status: employed Meds Allergies Allergy/AdvReac Type Severity Reaction Status Date / Time codeine Allergy Unknown Verified 12/20/22 22:33 NSAIDS (Non-Steroidal Allergy Unknown Verified 12/20/22 22:33 Anti-Inflamma Penicillins Allergy Unknown Verified 12/20/22 22:33 Tetanus Vaccines and Toxoid Allergy Unknown Verified 12/20/22 22:33 Active Medications: Current Medications Labetalol HCl (Labetalol Hcl 100 Mg/20 Ml Vial) 10 mg IVPUSH Q29M PRN; Protocol PRN Reason: Systolic greater than 180 Ondansetron HCl (Ondansetron Hcl 4 Mg/2 Ml Vial) 4 mg IVPUSH Q4H PRN PRN Reason: Nausea and Vomiting Sodium Chloride (0.9 % Sodium Chloride Flush 3 Ml Syringe) 3 ml IVFLUSH QSHIFT SYBIL Last Admin: 12/21/22 08:33 Dose: 3 ml Home Medications Medication Instructions Recorded Confirmed Last Taken Type atomoxetine 80 mg capsule 1 cap PO QAM 12/21/22 12/21/22 Unknown History Physical Exam Vital Signs: Vital Signs: Last Vital Signs Temp 97.6 F 12/21/22 14:56 Pulse 89 12/21/22 14:56 Resp 20 12/21/22 14:56 BP 155/82 H 12/21/22 14:56 Pulse Ox 97 12/21/22 14:56 O2 Del Method 12/21/22 14:56 BMI result Body Mass Index 25.5 Neuro: Other: He is alert and awake with normal spontaneity of speech fluency comprehension and affect. Face is symmetrical. There is no obvious facial weakness or hand or arm or leg weakness. Speech is normal. Visual luna are full. Results Labs 12/21/22 05:11 12/21/22 05:11 Labs: Short CBC 12/20/22 12/21/22 Range/Units 22:51 05:11 WBC 6.7 8.5 (4.8-10.8) X10*3/uL Hgb 13.9 L 14.3 (14.0-18.0) g/dl Hct 42.3 43.6 (42.0-52.0) % Plt Count 131 L 142 L (160-400) X10*3/uL BMP 12/20/22 12/21/22 22:51 05:11 Sodium 138 141 Potassium 4.2 3.7 Chloride 105 110 H Carbon Dioxide 25 19 L BUN 15 13 Creatinine 0.85 0.79 Calcium 8.8 8.9 Cardiac Enzymes 12/20/22 Range/Units 22:51 Total Creatine Kinase 49 (38-174) U/L Liver Function 12/20/22 Range/Units 22:51 Total Bilirubin 0.9 (0.0-1.0) mg/dL Direct Bilirubin 0.2 (0.0-0.5) mg/dL AST 20 (5-37) U/L ALT 23 (0-40) U/L Alkaline Phosphatase 73 (39-117) U/L Albumin 4.2 (3.5-5.0) g/dL His noncontrast head CT and brain MRI revealed moderately severe cortical frontoparietal bilateral atrophy and mild chronic microvascular ischemic changes. CTA revealed some fibromuscular dysplasia affecting posterior circulation and possibility of small pseudoaneurysm. His LDL was 140. EKG reveals sinus rhythm. Assessment and Plan (1) Cerebral microvascular disease: Status: Acute (2) Fibromuscular dysplasia: Status: Acute (3) Cerebral atrophy: Status: Acute (4) Cerebrovascular accident: Qualifiers: CVA mechanism: unspecified Qualified Code(s): I63.9 - Cerebral infarction, unspecified Status: Acute 57 years old man with underlying untreated hypertension came to hospital with new onset of right-sided numbness and weakness. He was treated with intravenous tPA with resolution of symptoms. Exam now is nonfocal. Possibilities included an aborted cerebral infarction. He does have similar smaller chronic microvascular lesions related to hypertension. Alternate possibility would be migraine though he stated that he was not having any headaches recently. He carried diagnosis of ADHD. His brain scan suggested significant atrophy that typically would result in behavioral symptomatology. Treatment is symptomatic. As far as vascular disease is concerned, I recommend a baby aspirin daily, blood pressure control and statin. He was strongly advised to continue these medications and follow-up with his primary care physician. Time Spent With Patient Time: Total time managing care of this patient today ____ minutes. Procedures Date of Service Date of Service: 12/21/22
[2022-12-22 03:54] VITALS: BP 134/78; PULSE 80; RESP 20; TEMP 37.1; O2SAT 94
[2022-12-22 05:47] LABS: MANUAL DIFF FLAG NO
[2022-12-22 05:51] LABS: Basophils Percent Auto 0.3 % (0-2); Eosinophils Absolute Auto 0.2 X10*3/uL (0.0-0.4); Eosinophils Percent Auto 1.7 % (0-4); Hematocrit 45.7 % (42.0-52.0); Imm Gran Abs Auto 0.04 X10*3/uL (0.00-0.03); Imm Gran Pct Auto 0.4 % (0.0-0.4); Lymphocytes Absolute Auto 2.6 X10*3/uL (1.2-4.9); Lymphocytes Percent Auto 29.2 % (20-40); Mean Corpuscular HGB Conc 32.8 g/dl (31.0-36.0); Mean Corpuscular Hemoglobin 29.6 pg (27.0-33.0); Mean Corpuscular Volume 90.3 fL (80.0-98.0); Mean Platelet Volume 11.9 fL (9.4-12.4); Monocytes Absolute Auto 0.9 X10*3/uL (0.1-1.2); Monocytes Percent Auto 10.2 % (2-11); Neutrophils Absolute Auto 5.2 x10*3/uL (2.0-8.3); Neutrophils Percent Auto 58.2 % (45-73); Platelet Count 135 X10*3/uL (160-400); Red Blood Count 5.06 X10*6/uL (4.60-5.80); Red Cell Distribution Width 12.9 % (11.0-16.0)
[2022-12-22 06:11] LABS: Alanine Aminotransferase 22 U/L (0-40); Albumin Level 4.3 g/dL (3.5-5.0); Alkaline Phosphatase 74 U/L (39-117); Anion Gap 13 (12-20); Aspartate Amino Transferase 17 U/L (5-37); Bilirubin Total 1.4 mg/dL (0.0-1.0); Blood Urea Nitrogen 14 mg/dL (9-16); Calcium 9.1 mg/dL (8.4-10.2); Carbon Dioxide 24 mmol/L (22-29); Chloride 109 mmol/L (96-108); Estimated Glomerular Filt Rate > 60; Glucose Fasting 87 mg/dL (60-99); Potassium 3.7 mmol/L (3.3-5.1); Sodium 142 mmol/L (135-145); Total Protein 6.1 g/dL (6.5-8.0)
[2022-12-22 07:18] VITALS: BP 139/68; PULSE 97; RESP 18; TEMP 36.2; O2SAT 98
--- NOTE | 2022-12-22 09:56 | P.DS_ITS ---
DS: Providers Provider Date of Service: 12/22/22 Date of admission: 12/20/22 23:32 Date of discharge: 12/22/22 Primary care physician: Unknown Physician Consults: 12/20/22 23:21 Consult to Neurology Routine Consulting Provider: Manuel Garcia Reason for consultation: stroke, post tPA DS: Diagnosis Discharge Diagnosis (1) Cerebral microvascular disease: Status: Acute (2) Fibromuscular dysplasia: Status: Acute (3) Cerebral atrophy: Status: Acute (4) Cerebrovascular accident: Status: Acute DS: Summary Hospital Course Hospital Course: The patient is a 57-year-old male with? past medical history of ADHD, who presented to the emergency room as a stroke alert.? 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 He states around 21:00 hours when he? ?felt weird , developed tingling in the right side of his body.? He then developed weakness in his right arm and right leg, numbness in the right side of his face and then a right facial droop. Patient stated that his blood pressure was high, his colleague called an ambulance, the patient then transported to the emergency department. Per EMS his BP was 180/120.? In the emergency room, BP 152/82,? other vital signs were stable. The patient with dysarthric speech, right facial droop, right upper and right lower extremity weakness compared to the left. CT scan of the brain without contrast was unremarkable.? Per ED physician consulted Neurology, Dr. Garcia, who agrees the patient is a tPA candidate. TPA was administered at 2300.? Hospital Course Patient admitted to ICU overnight. After tPA neuro exam returned to normal. He was transferred out to telemetry in his over 24 hours or monitor failed to demonstrate a dysrhythmia. At this point in time he will DC discharged with aspirin, high-dose statin and start lisinopril for blood pressure control. He is encouraged to follow-up with his PCP and arrange for neural follow-up at his location Time Spent with Patient Time attestation: Total time managing care of this patient today ____ minutes. Discharge coordination time: Greater than 30 minutes Quality: Safe Use of Opioids Does Pt have an Active Cancer Diagnosis on the Problem List?: No Quality: Stroke Does the patient have a stroke diagnosis?: Yes Reason for No Anti-thrombotic at DC: N/A - Med Ordered Reason for No Anticoagulant at DC: Drug treatment not indicated Reason Not Initiating IV-Tpa: N/A - Med Ordered Reason for No Anti-thrombotic by Day Two: N/A - Med Ordered Reason for No Statin at DC: N/A - Med Ordered Physical Exam Vital Signs: Vital Signs: Last Vital Signs Temp 97.2 F 12/22/22 07:18 Pulse 97 12/22/22 07:18 Resp 18 12/22/22 07:18 BP 139/68 12/22/22 07:18 Pulse Ox 98 12/22/22 07:18 O2 Del Method 12/22/22 07:18 BMI result Body Mass Index 25.5 Const: Other: No acute distress Resp: Other: Clear to auscultation bilaterally no rales rhonchi wheezes Cardio: Other: No S4; positive S1-S2; no S3 murmurs rubs or gallops GI: Other: Soft nontender nondistended normoactive bowel sounds Neuro: Other: Cranial nerves 2-12 grossly intact as tested. Motor is 5/5 all extremities. Sensation is tacked gait stable cognition appropriate Extrem: Other: No edema bilaterally DS: Data Data Completed and Pending Labs on day of discharge: Laboratory Results - last 24 hr 12/22/22 12/22/22 05:31 05:31 WBC 9.0 RBC 5.06 Hgb 15.0 Hct 45.7 MCV 90.3 MCH 29.6 MCHC 32.8 RDW 12.9 Plt Count 135 L MPV 11.9 Immature Gran % (Auto) 0.4 Neut % (Auto) 58.2 Lymph % (Auto) 29.2 [place] % (Auto) 10.2 Eos % (Auto) 1.7 Baso % (Auto) 0.3 Lymph # (Auto) 2.6 [place] # (Auto) 0.9 Eos # (Auto) 0.2 Baso # (Auto) 0.0 Abs Immat Gran (auto) 0.04 H Absolute Neuts (auto) 5.2 Absolute Nucleated RBC 0.000 Nucleated RBC % (auto) 0.0 Sodium 142 Potassium 3.7 Chloride 109 H Carbon Dioxide 24 Anion Gap 13 BUN 14 Creatinine 0.76 Estim Creat Clear Calc 112.0 Estimated GFR > 60 Fasting Glucose 87 Calcium 9.1 Total Bilirubin 1.4 H AST 17 ALT 22 Alkaline Phosphatase 74 Total Protein 6.1 L Albumin 4.3 Discharge Plan Discharge Anticipated Discharge Date/Time: 12/22/22 09:48 Patient Disposition: Home, Self-Care Discharge Diagnosis: CVA Referrals: Physician,Unknown J [Primary Care Provider] - 1 Week Discharge Medications: New atorvastatin [Lipitor] 80 mg tablet 80 mg PO BEDTIME Qty: 30 0RF lisinopril 5 mg tablet 5 mg PO DAILY Qty: 30 0RF aspirin 81 mg tablet,delayed release (DR/EC) 81 mg PO DAILY Qty: 30 0RF Continued atomoxetine 80 mg capsule 1 cap PO QAM Discharge Orders: Discharge Order (Routine); Ordered 12/22/22 Ordered By: Yovani Chavez Diet: Advance to usual diet Activity on Discharge: As tolerated Stand Alone Forms: Patient Portal Discharge page Care Plan Goals: New medicines added to her regimen: Lipitor 80 mg daily Aspirin 81 mg daily Lisinopril 5 mg daily Health Concerns: Any to take disease medicines on a regular basis. Plan of Treatment: Need to call PCP and arrange follow-up with neurologist in your area. Continue all meds and less changed by neurologist Assessment: See discharge summary
--- NOTE | 2022-12-22 10:04 | MHC.CM.PN ---
pt dcd home no skilled servceis ordered by
== END 2022-12-22 13:23 | disposition home or self-care (01) | DRG 62 ==
LOC: HO.ED 23:36 → HO.EDOVER 23:57 → HO.ICU 12-21 00:44 → HO.IMC 12-21 09:38
PROVIDERS: Internal Medicine Pulmonary Disease; Admitting Provider Registered Nurse Community Health; Emergency Provider Emergency Medicine Emergency Medical Services; PCP Nurse Practitioner Adult Health; Visit Provider Hospitalist
DX: I63.9 Cerebral infarction, unspecified (principal); G81.91 Hemiplegia, unspecified affecting right dominant side; F90.9 Attention-deficit hyperactivity disorder, unspecified type; R29.810 Facial weakness; I77.3 Arterial fibromuscular dysplasia; I10 Essential (primary) hypertension; R29.705 NIHSS score 5; G31.9 Degenerative disease of nervous system, unspecified; R20.0 Anesthesia of skin; Z20.822 Contact with and (suspected) exposure to COVID-19; Z88.0 Allergy status to penicillin; Z88.5 Allergy status to narcotic agent; Z88.6 Allergy status to analgesic agent; Z88.7 Allergy status to serum and vaccine; Z79.899 Other long term (current) drug therapy
CPT/HCPCS: 36415; 70450; 70496; 70498; 70551; 71045; 80048; 80053; 80061; 80076; 82550; 82947; 84484; 85025; 85610; 85730; 87635; 92610; 93005; 93306; 97162; 97166; 99285; J2997; Q9967